=== PATIENT | female | born 1970 | race Caucasian/White ===

== ENCOUNTER 2017-01-07 16:46 | Emergency (ER) | payer SELFPAY ==
[~2017-01-07] VITALS: Ht 165.1 cm; Wt 76.0 kg
[~2017-01-07 16:46] MED LIST: DICL75 PO; TRAM50 PO
[2017-01-07 16:48] VITALS: BP 146/79; PULSE 82; RESP 20; TEMP 98.1; O2SAT 95
--- NOTE | 2017-01-07 17:22 | PD ---
HPI Chief Complaint: Musculoskeletal Complaint Time Seen by Provider: 17:19 Travel History International Travel<30 days: No Contact w/Intl Traveler<30days: No Traveled to known affect area: No History of Present Illness HPI Patient comes in for evaluation of left pinky finger pain that began last night. Patient states she fell catching herself with her left hand injuring her left pinky finger. Patient states she's been icing it and taking ibuprofen last dose around 9 AM this morning with minimal to no relief of her symptoms. Patient states she is unable to move the finger secondary to pain. Denies any numbness or tingling. Pain radiates proximally. Patient is left-hand dominant. PFSH Past Medical History Medical History: Denies Significant Hx Immunizations Current: Yes Tubal Ligation: Yes Past Surgical History Section: Yes (x3) Oral Surgery: Yes (Root canal) Social History Alcohol Use: Yes (Occ) Tobacco Use: Yes (1/3 PPD) Substance Use: No Allergies-Medications (Allergen,Severity, Reaction): Coded Allergies: Penicillin (Verified Allergy, Severe, SWELLING/HIVES, 01/07/17) Codeine (Verified Adverse Reaction, Mild, Nausea/Vomiting, 01/07/17) Lortab (Verified Adverse Reaction, Mild, Nausea/Vomiting, 01/07/17) Reported Meds & Prescriptions Reported Meds & Active Scripts Active Ibuprofen 800 Mg Tab 800 Mg PO Q8H PRN Review of Systems Except as stated in HPI: all other systems reviewed are Neg Physical Exam Narrative GENERAL: Well-developed, overly nourished, in no acute distress, and non-ill appearing. SKIN: Warm and dry. Soft tissue swelling or ecchymosis noted palmar surface of the left fifth digit. HEAD: Atraumatic. Normocephalic. EYES: Pupils equal and round. EOMI. No scleral icterus. No injection or drainage. ENT: No nasal bleeding or discharge. Mucous membranes pink and moist. NECK: Trachea midline.Supple. No nuclear rigidity. CARDIOVASCULAR: Radial pulses 2+ intact bilaterally. Capillary refill less than 2 seconds. RESPIRATORY: No accessory muscle use. No respiratory distress. MUSCULOSKELETAL: No obvious deformities. No clubbing. No cyanosis. No edema. Decreased range of motion left pinky finger secondary to pain. Capillary refill less than 2 seconds distal to injury and equal BL. NV intact distal to injury. Flexion and extension of thumb equal BL. No tenderness to the anatomical snuffbox. NEUROLOGICAL: Awake and alert. No obvious cranial nerve deficits. Motor grossly within normal limits. Normal speech. PSYCHIATRIC: Appropriate mood and affect; insight and judgment normal. Data Data Last Documented VS Vital Signs Date Time Temp Pulse Resp B/P Pulse Ox O2 Delivery O2 Flow Rate FiO2 01/07/17 16:48 98.1 82 20 146/79 95 Room Air Orders Finger ([id number]) (01/07/17 ) Ice/Cold Pack (01/07/17 17:18) Ibuprofen (Motrin) (01/07/17 17:30) Tramadol (Ultram) (01/07/17 17:30) Finger ([id number]) (01/07/17 ) MDM Medical Decision Making Medical Screen Exam Complete: Yes Emergency Medical Condition: Yes Differential Diagnosis Fracture, sprain, contusion, dislocation, other Narrative Course Patient in no obvious distress upon re-evaluation. All pertinent Radiology result(s) discussed with patient. Patient was asked if they wanted to speak to my attending, which the patient did not wish to do at this time. Any questions/ concerns in reference to patient diagnosis/condition discussed and clarified prior to patient's discharge. Reinforced sheer importance of close follow up with hand surgeon. Instructed patient to return to ED immediately, if symptoms return/worsen. Pt showed understanding of above instructions. Further instructions and recommendations were detailed in discharge paperwork. Pt ambulated without difficulty out of ED at discharge. Procedures Procedure Narrative Verbal consent was obtained. Finger was reduced. Splint was placed. Patient tolerated procedure well. There is no complications medications. Neurovascular reassessed remained intact. Diagnosis Primary Impression: Dislocation, finger closed Qualified Code: S63.259A - Dislocation, finger closed, initial encounter Referrals: Livia Puente MD Patient Instructions: Finger Dislocation (ED), Finger Fracture (DC), General Instructions, Splint Care (ED) Additional Instructions: Follow-up with Dr. Puente, hand surgeon, this week call Monday for an appointment for reevaluation of year previously dislocated finger and questionable bone fragment on x-ray. Take all medication as prescribed. Apply ice to affected area 20 minutes per hour as needed for pain and swelling. Elevate affected finger whenever possible to decrease pain and swelling. Return to the emergency department if symptoms get worse. Med/Other Pt SpecificInfo: Prescription(s) given Scripts Ibuprofen 800 Mg [id number] Mg PO Q8H PRN (Pain/Inflammation) #21 TAB Ref 0 Prov:Beth Ordonez MD 01/07/17 Disposition: 01 DISCHARGE HOME Condition: Stable Prosper Alcantar Jan 07, 2017 17:22
[2017-01-07] MEDS ORDERED: traMADol HCL 50 MG TAB PO ONE (17:30)
[2017-01-07] MEDS ORDERED: IBUPROFEN 800 MG TAB PO ONE (17:30)
--- NOTE | 2017-01-07 17:37 | RADRPT ---
EXAM DATE/TIME: 01/07/2017 17:35 [facility] COMPARISON: No previous studies available for comparison. INDICATIONS : Left hand, fifth digit pain. Patient fell backwards lastnight and landed on her hand. MEDICAL HISTORY : None. SURGICAL HISTORY : None. ENCOUNTER: Initial ACUITY: 2 days PAIN SCORE: 10/10 LOCATION: Left hand, fifth digit. FINDINGS: Examination of the fifth digit of the left hand demonstrates no evidence of fracture. There is disloc ation of the PIP joint of the little finger dislocation. No radiopaque foreign bodies are seen. The soft tissues are intact. CONCLUSION: Dislocation of the PIP joint posteriorly. Bill Gallardo MD on January 07, 2017 at 17:35 Board Certified Radiologist. This report was verified electronically.
--- NOTE | 2017-01-07 18:05 | RADRPT ---
EXAM DATE/TIME: 01/07/2017 17:52 [facility] COMPARISON: No previous studies available for comparison. INDICATIONS : Post reduction of fifth digit. MEDICAL HISTORY : None. SURGICAL HISTORY : None. ENCOUNTER: Initial ACUITY: 1 day PAIN SCORE: 10/10 LOCATION: Left fifth digit. FINDINGS: Examination of the fifth digit of the left hand demonstrates relocation of PIP joint. Tiny fragments are seen anteriorly. Soft tissue swelling. CONCLUSION: Little finger has been relocated to its anatomic position. Soft tissue swelling. Tiny fragments seen anteriorly. Bill Gallardo MD on January 07, 2017 at 18:02 Board Certified Radiologist. This report was verified electronically.
[2017-01-07] MEDS ORDERED: IBUP800T23 PO (18:27)
== END 2017-01-07 18:46 | disposition home or self-care (01) ==
LOC: NEPB 16:46
DX: S63.257A Unspecified dislocation of left little finger, initial encounter (principal); W01.10XA Fall on same level from slipping, tripping and stumbling with subsequent striking against unspecified object, initial encounter; F17.210 Nicotine dependence, cigarettes, uncomplicated
CPT/HCPCS: 26770; 73140

== ENCOUNTER 2017-01-18 15:37 | Observation (INO) | payer SELFPAY ==
[~2017-01-18] VITALS: Ht 165.1 cm; Wt 71.0 kg
[~2017-01-18 15:37] MED LIST changes: -DICL75 PO; +IBUP800T23 PO; -TRAM50 PO
[2017-01-18 15:40] VITALS: BP 137/87; PULSE 100; RESP 20; TEMP 98.2; O2SAT 97
[2017-01-18] MEDS ORDERED: ONDANSETRON ODT 4 MG TAB PO ONE (17:00)
--- NOTE | 2017-01-18 17:08 | PD ---
HPI Chief Complaint: GI Complaint Time Seen by Provider: 17:02 Travel History International Travel<30 days: No Contact w/Intl Traveler<30days: No Traveled to known affect area: No History of Present Illness HPI Patient is a 46-year-old female presenting to emergency department for evaluation of abdominal pain, diarrhea, vomiting. Patient states her symptoms started on Monday. She states that has not improved at all since symptoms started. She is vomited 3 times today already. She's had several episodes of diarrhea as well. Patient localizes the pain to the left lower quadrant, she's got no significant past medical history. She denies any tobacco or alcohol use. Patient further denies any fever, chills, chest pain, shortness of breath , headaches or body aches. PFSH Past Medical History Medical History: Denies Significant Hx Immunizations Current: Yes ?: Not LMP: 01/10/17 Tubal Ligation: Yes Past Surgical History Section: Yes (x3) Oral Surgery: Yes (Root canal) Social History Alcohol Use: No Tobacco Use: No Substance Use: No Allergies-Medications (Allergen,Severity, Reaction): Coded Allergies: Penicillin (Verified Allergy, Severe, SWELLING/HIVES, 01/18/17) Codeine (Verified Adverse Reaction, Mild, Nausea/Vomiting, 01/18/17) Lortab (Verified Adverse Reaction, Mild, Nausea/Vomiting, 01/18/17) Reported Meds & Prescriptions Reported Meds & Active Scripts Active Ibuprofen 800 Mg Tab 800 Mg PO Q8H PRN Review of Systems Except as stated in HPI: all other systems reviewed are Neg Gastrointestinal: Positive: Nausea, Vomiting, Diarrhea, Abdominal Pain, Changes in Bowel Habits Physical Exam Narrative GENERAL: Well-developed, well-nourished, alert occasion female. Resting comfortably in no acute distress. SKIN: Warm and dry. HEAD: Atraumatic. Normocephalic. EYES: Pupils equal and round. No scleral icterus. No injection or drainage. ENT: No nasal bleeding or discharge. Mucous membranes pink and moist. NECK: Trachea midline. No JVD. CARDIOVASCULAR: Regular rate and rhythm. No murmur appreciated. RESPIRATORY: No accessory muscle use. Clear to auscultation. Breath sounds equal bilaterally. GASTROINTESTINAL: Abdomen soft, moderately tender to palpation left lower quadrant, nondistended. Hepatic and splenic margins not palpable. Positive guarding, no rebound. Positive bowel sounds. MUSCULOSKELETAL: No obvious deformities. No clubbing. No cyanosis. No edema. NEUROLOGICAL: Awake and alert. No obvious cranial nerve deficits. Motor grossly within normal limits. Normal speech. PSYCHIATRIC: Appropriate mood and affect; insight and judgment normal. Data Data Last Documented VS Vital Signs Date Time Temp Pulse Resp B/P Pulse Ox O2 Delivery O2 Flow Rate FiO2 01/18/17 15:40 98.2 100 20 137/87 97 Room Air Orders Complete Blood Count With Diff (01/18/17 16:51) Comprehensive Metabolic Panel (01/18/17 16:51) Lipase (01/18/17 16:51) Prothrombin Time / Inr (Pt) (01/18/17 16:51) Act Partial Throm Time (Ptt) (01/18/17 16:51) Urinalysis - C+S If Indicated (01/18/17 16:51) Abdomen, Kub Only (01/18/17 16:51) Ed Urine Pregnancytest Poc (01/18/17 16:51) Ondansetron Odt (Zofran Odt) (01/18/17 17:00) Sodium Chlor 0.9% 1000 Ml Inj (Ns 1000 M (01/18/17 19:30) Morphine Inj (Morphine Inj) (01/18/17 19:30) Ct Abd/Pel W Iv Contrast(Rout) (01/18/17 ) Labs Laboratory Tests Test 01/18/17 17:03 White Blood Count 7.3 TH/MM3 Red Blood Count 5.08 MIL/MM3 Hemoglobin 14.2 GM/DL Hematocrit 42.6 % Mean Corpuscular Volume 83.8 FL Mean Corpuscular Hemoglobin 28.0 PG Mean Corpuscular Hemoglobin 33.4 % Concent Red Cell Distribution Width 14.6 % Platelet Count 230 TH/MM3 Mean Platelet Volume 8.9 FL Neutrophils (%) (Auto) 65.4 % Lymphocytes (%) (Auto) 16.8 % Monocytes (%) (Auto) 16.5 % Eosinophils (%) (Auto) 1.0 % Basophils (%) (Auto) 0.3 % Neutrophils # (Auto) 4.8 TH/MM3 Lymphocytes # (Auto) 1.2 TH/MM3 Monocytes # (Auto) 1.2 TH/MM3 Eosinophils # (Auto) 0.1 TH/MM3 Basophils # (Auto) 0.0 TH/MM3 CBC Comment DIFF FINAL Differential Comment Prothrombin Time 11.7 SEC Prothromb Time International 1.1 RATIO Ratio Activated Partial 26.0 SEC Thromboplast Time Urine Color DARK-YELLOW Urine Turbidity HAZY Urine pH 5.5 Urine Specific [place] 1.034 Urine Protein 30 mg/dL Urine Glucose (UA) NEG mg/dL Urine Ketones NEG mg/dL Urine Occult Blood MOD Urine Nitrite NEG Urine Bilirubin NEG Urine Urobilinogen LESS THAN 2.0 MG/DL Urine Leukocyte Esterase NEG Urine RBC 13 /hpf Urine WBC 1 /hpf Urine Squamous Epithelial 8 /hpf Cells Urine Bacteria OCC /hpf Urine Mucus MANY /lpf Microscopic Urinalysis Comment CULT NOT INDICATED Sodium Level 137 MEQ/L Potassium Level 3.7 MEQ/L Chloride Level 104 MEQ/L Carbon Dioxide Level 24.7 MEQ/L Anion Gap 8 MEQ/L Blood Urea Nitrogen 11 MG/DL Creatinine 0.90 MG/DL Estimat Glomerular Filtration 68 ML/MIN Rate Random Glucose 106 MG/DL Calcium Level 9.0 MG/DL Total Bilirubin 0.2 MG/DL Aspartate Amino Transf 29 U/L (AST/SGOT) Alanine Aminotransferase 79 U/L (ALT/SGPT) Alkaline Phosphatase 116 U/L Total Protein 7.5 GM/DL Albumin 3.5 GM/DL Lipase 67 U/L MDM Medical Decision Making Medical Screen Exam Complete: Yes Emergency Medical Condition: Yes Interpretation(s) Vital Signs Date Time Temp Pulse Resp B/P Pulse Ox O2 Delivery O2 Flow Rate FiO2 01/18/17 15:40 98.2 100 20 137/87 97 Room Air Differential Diagnosis Obstruction versus ovarian cyst versus diverticulitis versus gastroenteritis versus other Narrative Course Patient is a 46-year-old female presenting to emergency evaluation of left lower quadrant abdominal pain, nausea, vomiting and diarrhea. Patient's vital signs are stable, she is well oxygenated on room air and afebrile currently. Labs and imaging ordered and pending. Workup initiated in triage, care of patient will be transferred to a provider when a medical bed is available. Sonal Snowden Jan 18, 2017 17:08
--- NOTE | 2017-01-18 17:21 | RADRPT ---
EXAM DATE/TIME: 01/18/2017 16:58 [facility] COMPARISON: No previous studies available for comparison. INDICATIONS : Abdominal pain. MEDICAL HISTORY : None. SURGICAL HISTORY : section. ENCOUNTER: Initial ACUITY: 4 - 6 days PAIN SCORE: 9/10 LOCATION: lower quadrant abdomen. FINDINGS: Supine view of the abdomen was performed. The abdominal bowel gas pattern is normal. No abnormal ma sses, calcifications, or organomegaly is seen. The osseous structures are unremarkable. CONCLUSION: Within normal limits. No free air or perceptible obstruction.. Joel Wilson MD on January 18, 2017 at 17:19 Board Certified Radiologist. This report was verified electronically.
[2017-01-18 17:35] LABS: AUTOMATED NEUTROPHIL # 4.8 TH/MM3 (1.8-7.7); BASOPHIL % 0.3 % (0.0-2.0); EOSINOPHIL # 0.1 TH/MM3 (0-0.4); HEMATOCRIT 42.6 % (35.0-46.0); HEMO FLAGS DIFF FINAL; LYMPH % 16.8 % (9.0-44.0); LYMPHOCYTE # 1.2 TH/MM3 (1.0-4.8); MEAN CELL VOLUME 83.8 FL (80.0-100.0); MEAN CORPUSCULAR HGB CONC 33.4 % (32.0-36.0); MONO % 16.5 % (0.0-8.0); NEUT % 65.4 % (16.0-70.0); PLATELET COUNT 230 TH/MM3 (150-450); RED BLOOD COUNT 5.08 MIL/MM3 (4.00-5.30); RED CELL DISTRIBUTION WIDTH 14.6 % (11.6-17.2); WHITE BLOOD COUNT 7.3 TH/MM3 (4.0-11.0)
[2017-01-18 17:43] LABS: INTERNATIONAL NORMALIZED RATIO 1.1 RATIO; PROTHROMBIN TIME - PATIENT 11.7 SEC (9.8-11.6)
[2017-01-18 17:45] LABS: BACTERIA, URINE OCC /hpf; BLOOD, URINE MOD (NEG); COMMENT (UR) CULT NOT INDICATED; CULTURE IF INDICATED CULT NOT INDICATED; GLUCOSE,URINE NEG (NEG); KETONE, URINE NEG (NEG); MUCUS URINE MANY /lpf (OCC); NITRITE,URINE NEG (NEG); PH, URINE 5.5 (5.0-8.5); SQUAMOUS EPITHELIAL CELL URINE 8 /hpf (0-5); URINE COLOR DARK-YELLOW (YELLW/STRAW)
[2017-01-18 17:56] LABS: ANION GAP 8 MEQ/L (5-15); AST (GOT) 29 U/L (15-37); BICARBONATE 24.7 MEQ/L (21.0-32.0); BLOOD UREA NITROGEN 11 MG/DL (7-18); CHLORIDE 104 MEQ/L (98-107); GLOMERULAR FILTRATION RATE 68 ML/MIN (>89); POTASSIUM 3.7 MEQ/L (3.5-5.1); SODIUM (NA) 137 MEQ/L (136-145)
[2017-01-18 18:00] LABS: ALKALINE PHOSPHATASE 116 U/L (45-117); ALT (GPT) 79 U/L (10-53); TOTAL BILIRUBIN ADULT 0.2 MG/DL (0.2-1.0)
[2017-01-18 19:25] VITALS: BP 139/84; PULSE 95; RESP 20; O2SAT 95
[2017-01-18] MEDS ORDERED: SODIUM CHLOR 0.9% 1000 ML INJ 1,000 ML IV ONE ×2 (19:30→21:00)
[2017-01-18] MEDS ORDERED: MORPHINE SULFATE 4 MG/ML INJ IV PUSH ONE ×2 (19:30→21:00)
--- NOTE | 2017-01-18 19:31 | PD ---
Physical Exam Date Seen by Provider: Jan 18, 2017 Time Seen by Provider: 19:28 Narrative Accepted in transfer of care from previous provider GENERAL: Well-developed well-nourished female in no respiratory distress SKIN: Warm and dry. HEAD: Normocephalic. EYES: No scleral icterus. No injection or drainage. NECK: Supple, trachea midline. No JVD or lymphadenopathy. CARDIOVASCULAR: Regular rate and rhythm without murmurs, gallops, or rubs. RESPIRATORY: Breath sounds equal bilaterally. No accessory muscle use. GASTROINTESTINAL: Abdomen soft, diffusely tender to palpation specifically left lower quadrant greater than right lower quadrant without guarding or rebound, nondistended. Rectal exam: Normal sphincter tone mucoid brown stool on exam glove MUSCULOSKELETAL: No cyanosis, or edema. BACK: Nontender without obvious deformity. No CVA tenderness. Data Data Last Documented VS Vital Signs Date Time Temp Pulse Resp B/P Pulse Ox O2 Delivery O2 Flow Rate FiO2 01/18/17 15:40 98.2 100 20 137/87 97 Room Air Orders Complete Blood Count With Diff (01/18/17 16:51) Comprehensive Metabolic Panel (01/18/17 16:51) Lipase (01/18/17 16:51) Prothrombin Time / Inr (Pt) (01/18/17 16:51) Act Partial Throm Time (Ptt) (01/18/17 16:51) Urinalysis - C+S If Indicated (01/18/17 16:51) Abdomen, Kub Only (01/18/17 16:51) Ed Urine Pregnancytest Poc (01/18/17 16:51) Ondansetron Odt (Zofran Odt) (01/18/17 17:00) Sodium Chlor 0.9% 1000 Ml Inj (Ns 1000 M (01/18/17 19:30) Morphine Inj (Morphine Inj) (01/18/17 19:30) Ct Abd/Pel W Iv Contrast(Rout) (01/18/17 ) Iohexol 350 Inj (Omnipaque 350 Inj) (01/18/17 20:35) Sodium Chlor 0.9% 1000 Ml Inj (Ns 1000 M (01/18/17 21:00) Metronidazole 500 Mg Inj (Flagyl 500 Mg (01/18/17 21:00) Morphine Inj (Morphine Inj) (01/18/17 21:00) Ondansetron Inj (Zofran Inj) (01/18/17 21:00) Enteric Path (Stool) (01/18/17 22:01) Admit Order (Ed Use Only) (01/18/17 ) ^ Saline Lock (01/18/17 22:03) Resp Oxygen Rigo C Titrat 1-4 L (01/18/17 ) ^ Notify Dr: Other (01/18/17 22:03) Sodium Chloride 0.9% Flush (Ns Flush) (01/19/17 09:00) Sodium Chloride 0.9% Flush (Ns Flush) (01/18/17 22:15) NPO (01/18/17 22:04) Labs Laboratory Tests Test 01/18/17 17:03 White Blood Count 7.3 TH/MM3 Red Blood Count 5.08 MIL/MM3 Hemoglobin 14.2 GM/DL Hematocrit 42.6 % Mean Corpuscular Volume 83.8 FL Mean Corpuscular Hemoglobin 28.0 PG Mean Corpuscular Hemoglobin 33.4 % Concent Red Cell Distribution Width 14.6 % Platelet Count 230 TH/MM3 Mean Platelet Volume 8.9 FL Neutrophils (%) (Auto) 65.4 % Lymphocytes (%) (Auto) 16.8 % Monocytes (%) (Auto) 16.5 % Eosinophils (%) (Auto) 1.0 % Basophils (%) (Auto) 0.3 % Neutrophils # (Auto) 4.8 TH/MM3 Lymphocytes # (Auto) 1.2 TH/MM3 Monocytes # (Auto) 1.2 TH/MM3 Eosinophils # (Auto) 0.1 TH/MM3 Basophils # (Auto) 0.0 TH/MM3 CBC Comment DIFF FINAL Differential Comment Prothrombin Time 11.7 SEC Prothromb Time International 1.1 RATIO Ratio Activated Partial 26.0 SEC Thromboplast Time Urine Color DARK-YELLOW Urine Turbidity HAZY Urine pH 5.5 Urine Specific [place] 1.034 Urine Protein 30 mg/dL Urine Glucose (UA) NEG mg/dL Urine Ketones NEG mg/dL Urine Occult Blood MOD Urine Nitrite NEG Urine Bilirubin NEG Urine Urobilinogen LESS THAN 2.0 MG/DL Urine Leukocyte Esterase NEG Urine RBC 13 /hpf Urine WBC 1 /hpf Urine Squamous Epithelial 8 /hpf Cells Urine Bacteria OCC /hpf Urine Mucus MANY /lpf Microscopic Urinalysis Comment CULT NOT INDICATED Sodium Level 137 MEQ/L Potassium Level 3.7 MEQ/L Chloride Level 104 MEQ/L Carbon Dioxide Level 24.7 MEQ/L Anion Gap 8 MEQ/L Blood Urea Nitrogen 11 MG/DL Creatinine 0.90 MG/DL Estimat Glomerular Filtration 68 ML/MIN Rate Random Glucose 106 MG/DL Calcium Level 9.0 MG/DL Total Bilirubin 0.2 MG/DL Aspartate Amino Transf 29 U/L (AST/SGOT) Alanine Aminotransferase 79 U/L (ALT/SGPT) Alkaline Phosphatase 116 U/L Total Protein 7.5 GM/DL Albumin 3.5 GM/DL Lipase 67 U/L [facility] Medical Record Reviewed: Yes Supervised Visit with DARWIN: No Interpretation(s) Last Impressions Abdomen X-Ray 01/18/17 1651 Signed Impressions: Service Date/Time: Wednesday, January 18, 2017 16:58 - CONCLUSION: Within normal limits. No free air or perceptible obstruction.. Joel Wilson MD Abdomen/Pelvis CT 01/18/17 0000 Signed Impressions: Service Date/Time: Wednesday, January 18, 2017 20:21 - CONCLUSION: 1. Diffuse colitis greatest involving the ascending, descending and sigmoid colon. Mild inflammatory changes without perforation or abscess. Bill Gallardo MD CBC & BMP Diagram 01/18/17 17:03 Vital Signs Date Time Temp Pulse Resp B/P Pulse Ox O2 Delivery O2 Flow Rate FiO2 01/18/17 15:40 98.2 100 20 137/87 97 Room Air Differential Diagnosis Gastroenteritis, colitis, diverticulitis, food borne illness, renal colic Narrative Course 46-year-old female with 4 days of nausea vomiting diarrhea abdominal cramping with concentrated urine and episodes of hematochezia no hematemesis no coffee- ground emesis no melena. No well water consumption no dietary indiscretion no foreign travel. No family members with similar symptoms. Subjective fever and chills. Prior history of diverticulitis. No recent antibiotic use. No significant relief of symptoms using [id number] Imodium. Pain is rated as 9/10 in intensity. Patient unable tolerate oral hydration. Lab values found to be grossly within normal range except for microscopic hematuria. CT abdomen and pelvis ordered normal saline bolus administered patient is artery received Zofran 4 mg IV patient has codeine/Lortab sensitivity was nausea vomiting but no true allergy and states his tolerated IV morphine while in the past without adverse symptoms; morphine sulfate 3 mg IV administered. At 9:05 PM patient is aware of lab results CT imaging results and reports some improvement after 1 L normal saline along with previous administered Zofran 4 mg and morphine sulfate 3 mg IV. Patient continues to have crampy abdominal pain no further vomiting since Zofran and has not had recurrent diarrheal stool since administration IV fluid hydration. We'll attempt oral trial of ice chips and Gatorade a precipitates cramping diarrhea or increased pain will admit patient for observation of able tolerate oral hydration without recurrent cramping pain or bloody diarrhea will attempt trial of outpatient management with oral Flagyl. At 9:45 PM after attempting oral hydration patient with recurrent crampy abdominal pain and bloody diarrhea; call placed to the hospitalist service for observation admission and bowel rest with IV fluid hydration. HemaPrompt Test Point of Care Internal Pos. & Neg. Controls: Passed Fecal Specimen Occult Blood: Positive Sepsis Criteria SIRS Criteria (2 or more): Heart rate over 90 Physician Communication Physician Communication call placed to [facility] service -- discussed with Dr Foote --OBS Diagnosis Primary Impression: Colitis Admitting Information Admitting Physician Requests: Observation Inessa Clemente MD Jan 18, 2017 19:31
[2017-01-18] MEDS ORDERED: IOHEXOL 350 MG/ML 10 ML VIAL (for RAD DIAG) IV ONE (20:35)
--- NOTE | 2017-01-18 20:49 | RADRPT ---
EXAM DATE/TIME: 01/18/2017 20:21 [facility] COMPARISON: No previous studies available for comparison. INDICATIONS : Abdominal cramping with nausea, vomiting, and diarrhea for 4 days. IV CONTRAST: 97 cc Omnipaque 350 (iohexol) IV ORAL CONTRAST: No oral contrast ingested. RADIATION DOSE: 8.14 CTDIvol (mGy) MEDICAL HISTORY : None SURGICAL HISTORY : Tubal ligation. ENCOUNTER: Initial ACUITY: 4 - 6 days PAIN SCALE: 7/10 LOCATION: Abdomen/pelvis TECHNIQUE: Volumetric scanning of the abdomen and pelvis was performed. Using automated exposure control and ad justment of the mA and/or kV according to patient size, radiation dose was kept as low as reasonably achievable to obtain optimal diagnostic quality images. FINDINGS: LOWER LUNGS: The visualized lower lungs are clear. LIVER: Homogeneous density without lesion. There is no dilation of the biliary tree. No calcified gallston es. SPLEEN: Normal size without lesion. PANCREAS: Within normal limits. KIDNEYS: Normal in size and shape. There is no mass, stone or hydronephrosis. ADRENAL GLANDS: Within normal limits. VASCULAR: There is no aortic aneurysm. BOWEL/MESENTERY: Wall thickening throughout the colon greatest along the descending and sigmoid colon. Slight inflamma tory changes. No perforation or abscess. There is no free intraperitoneal air or fluid. ABDOMINAL WALL: Within normal limits. RETROPERITONEUM: There is no lymphadenopathy. BLADDER: No wall thickening or mass. REPRODUCTIVE: Within normal limits. INGUINAL: There is no lymphadenopathy or hernia. MUSCULOSKELETAL: Within normal limits for patient age. CONCLUSION: 1. Diffuse colitis greatest involving the ascending, descending and sigmoid colon. Mild inflammatory changes without perforation or abscess. Bill Gallardo MD on January 18, 2017 at 20:46 Board Certified Radiologist. This report was verified electronically.
[2017-01-18] MEDS ORDERED: metroNIDAZOLE 500 MG INJ 100 ML IV ONE (21:00)
[2017-01-18] MEDS ORDERED: ONDANSETRON HCL 4 MG/2 ML VIAL IV PUSH ONE (21:00)
[2017-01-18] MEDS ORDERED: SODIUM CHLORIDE 0.9% FLUSH 5 ML FLUSH IVF PRN (22:15)
[2017-01-18] MEDS ORDERED: SODIUM CHLORIDE 0.9% FLUSH 5 ML FLUSH FLUSH PRN (22:30)
[2017-01-18] MEDS ORDERED: NALOXONE HCL 0.4 MG/ML AMP IV PRN (22:30)
[2017-01-18] MEDS: CIPROFLOXACIN 400 MG PREMIX 200 ML IV SCH (23:11)
[2017-01-18] MEDS: SODIUM CHLOR 0.9% 1000 ML INJ 1,000 ML IV SCH (23:11)
[2017-01-19] VITALS (7 sets, daily range): BP systolic 100–129; BP diastolic 58–76; PULSE 79–88; RESP 18–20; TEMP 97.4–98.7; O2SAT 95–100
[2017-01-19] MEDS: metroNIDAZOLE 500 MG INJ 100 ML IV SCH ×4 (02:51→21:11)
[2017-01-19] MEDS: MORPHINE SULFATE 4 MG/ML INJ IV PUSH PRN ×3 (03:06→12:40)
--- NOTE | 2017-01-19 05:37 | HHI.HP ---
[facility] No Primary Care Physician Admission Diagnosis colitis Diagnoses: Chief Complaint: Abdominal pain, nausea, vomiting, diarrhea Travel History International Travel<30 Days: No Contact w/Intl Traveler <30 Da: No Traveled to Known Affected Are: No History of Present Illness History from patient, ER physician, irrigation, and review of medical records. Patient reported that since Monday she has been having diffuse abdominal pain. She also reports of subjective fever and chills that she did not measure her temperature. She stated that she was also having nausea and vomiting. No coffee color or bright red blood in her vomit. Next and she states that the vomiting has actually stopped since she arrived to ER and received Zofran. She was also having diarrhea. She states the diarrhea however has not stopped at all. She is still having it even when she drinks a sip of water. She also reports of some blood bright red color in her diarrhea. she stated she took a few doses of Imodium at home. She denies any sick contacts. In the emergency room, patient was given IV fluids. She had multiple episodes of running to the bathroom for diarrhea. She simply was not able to ambulate well and was extremely weak because of these bouts of diarrhea. Apart from the above, patient denies any chest pain/palpitations/shortness of breath/focal weakness. She denies any syncopal episodes or falls. Denies any urinary burning or pain on urination. Review of Systems Except as stated in HPI: all other systems reviewed are Neg Past Family Social History Past Medical History hx of hydronephrosis 6 yrs ago - right side Past Surgical History c section x3 tubal ligation Reported Medications None Allergies: Coded Allergies: Penicillin (Verified Allergy, Severe, SWELLING/HIVES, 01/18/17) Codeine (Verified Adverse Reaction, Mild, Nausea/Vomiting, 01/18/17) Lortab (Verified Adverse Reaction, Mild, Nausea/Vomiting, 01/18/17) Family History mom - 3 cva , 2 mi brother- copd Social History smoking quit 4 days ago - smoked 8 yrs - a pack every 3 days etoh socially, used to drink heavily 15yrs ago Physical Exam Vital Signs Vital Signs Date Time Temp Pulse Resp B/P Pulse Ox O2 Delivery O2 Flow Rate FiO2 01/19/17 03:59 82 18 122/69 100 Room Air 01/19/17 00:00 88 20 129/76 96 Room Air 01/18/17 19:25 95 20 139/84 95 Room Air 01/18/17 15:40 98.2 100 20 137/87 97 Room Air Physical Exam GENERAL: This is a very pleasant lady, looks quite weak. Tactile fever, in no apparent distress. SKIN: No rashes, ecchymoses or lesions. Cool and dry. HEAD: Atraumatic. Normocephalic. No temporal or scalp tenderness. EYES: No scleral icterus. No injection or drainage. ENT: Nose without bleeding, purulent drainage or septal hematoma. Airway patent. NECK: Trachea midline. No JVD CARDIOVASCULAR: Regular rate and rhythm without murmurs, gallops, or rubs. RESPIRATORY: Clear to auscultation. Breath sounds equal bilaterally. No wheezes , rales, or rhonchi. GASTROINTESTINAL: Abdomen soft, tenderness diffusely, nondistended.. No guarding. MUSCULOSKELETAL: Extremities without clubbing, cyanosis, or edema.No calf tenderness. NEUROLOGICAL: Awake and alert. Motor and sensory grossly within normal limits Normal speech. Laboratory Laboratory Tests Test 01/18/17 17:03 White Blood Count 7.3 Red Blood Count 5.08 Hemoglobin 14.2 Hematocrit 42.6 Mean Corpuscular Volume 83.8 Mean Corpuscular Hemoglobin 28.0 Mean Corpuscular Hemoglobin 33.4 Concent Red Cell Distribution Width 14.6 Platelet Count 230 Mean Platelet Volume 8.9 Neutrophils (%) (Auto) 65.4 Lymphocytes (%) (Auto) 16.8 Monocytes (%) (Auto) 16.5 Eosinophils (%) (Auto) 1.0 Basophils (%) (Auto) 0.3 Neutrophils # (Auto) 4.8 Lymphocytes # (Auto) 1.2 Monocytes # (Auto) 1.2 Eosinophils # (Auto) 0.1 Basophils # (Auto) 0.0 CBC Comment DIFF FINAL Differential Comment Prothrombin Time 11.7 Prothromb Time International 1.1 Ratio Activated Partial 26.0 Thromboplast Time Urine Color DARK-YELLOW Urine Turbidity HAZY Urine pH 5.5 Urine Specific [place] 1.034 Urine Protein 30 Urine Glucose (UA) NEG Urine Ketones NEG Urine Occult Blood MOD Urine Nitrite NEG Urine Bilirubin NEG Urine Urobilinogen LESS THAN 2.0 Urine Leukocyte Esterase NEG Urine RBC 13 Urine WBC 1 Urine Squamous Epithelial 8 Cells Urine Bacteria OCC Urine Mucus MANY Microscopic Urinalysis Comment CULT NOT INDICATED Sodium Level 137 Potassium Level 3.7 Chloride Level 104 Carbon Dioxide Level 24.7 Anion Gap 8 Blood Urea Nitrogen 11 Creatinine 0.90 Estimat Glomerular Filtration 68 Rate Random Glucose 106 Calcium Level 9.0 Total Bilirubin 0.2 Aspartate Amino Transf 29 (AST/SGOT) Alanine Aminotransferase 79 (ALT/SGPT) Alkaline Phosphatase 116 Total Protein 7.5 Albumin 3.5 Lipase 67 Date/Time Procedure Status Source Growth 01/18/17 22:55 Received Stool Stool Pending Result Diagram: 01/18/17 1703 01/18/17 1703 Imaging Last 48 hours Impressions Abdomen X-Ray 01/18/17 1651 Signed Impressions: Service Date/Time: Wednesday, January 18, 2017 16:58 - CONCLUSION: Within normal limits. No free air or perceptible obstruction.. Joel Wilson MD Abdomen/Pelvis CT 01/18/17 0000 Signed Impressions: Service Date/Time: Wednesday, January 18, 2017 20:21 - CONCLUSION: 1. Diffuse colitis greatest involving the ascending, descending and sigmoid colon. Mild inflammatory changes without perforation or abscess. Bill Gallardo MD Assessment and Plan Problem List: (1) Colitis ICD Code: K52.9 Status: Acute Assessment and Plan Impression: Diffuse colitis Plan: IV hydration. Stool studies including for ova and parasites. Will monitor electrolytes closely. Nausea control. Pain control. GI evaluation as an outpatient. This was informed to patient. Ciprofloxacin 400 mg IV every 12 hours. Flagyl 500 mg IV every 6 hours. DVT prophylaxiswith SCD. GI prophylaxis on pantoprazole Discussed Condition With Patient, ER physician, ER nurse Mercedes Foote MD Jan 19, 2017 05:37
--- NOTE | 2017-01-19 08:09 | HHI.PR ---
Subjective Remarks Follow up for colitis. The patient reports she does not feel well again today. Still having multiple loose stools, approximately 6-7 overnight, denies noticing any blood. No fevers/chills overnight. No nausea/vomiting. She reports continued constant epigastric pain. Denies taking any antibiotics recently or recent travel. Some family members were sick recently with URI but no gastroenteritis. Objective Vitals Vital Signs Date Time Temp Pulse Resp B/P Pulse Ox O2 Delivery O2 Flow Rate FiO2 01/19/17 03:59 82 18 122/69 100 Room Air 01/19/17 00:00 88 20 129/76 96 Room Air 01/18/17 19:25 95 20 139/84 95 Room Air 01/18/17 15:40 98.2 100 20 137/87 97 Room Air Result Diagram: 01/18/17 1703 01/18/17 1703 Imaging Last Impressions Abdomen X-Ray 01/18/17 1651 Signed Impressions: Service Date/Time: Wednesday, January 18, 2017 16:58 - CONCLUSION: Within normal limits. No free air or perceptible obstruction.. Joel Wilson MD Abdomen/Pelvis CT 01/18/17 0000 Signed Impressions: Service Date/Time: Wednesday, January 18, 2017 20:21 - CONCLUSION: 1. Diffuse colitis greatest involving the ascending, descending and sigmoid colon. Mild inflammatory changes without perforation or abscess. Bill Gallardo MD Objective Remarks GENERAL: Well-nourished, well-developed middle aged female patient in [facility]. SKIN: Warm and dry. No rash. HEENT: Normocephalic. Atraumatic.Pupils equal and round. No scleral icterus. No injection or drainage. Mucous membranes pink and moist. NECK: Supple. Trachea midline. CARDIOVASCULAR: Regular rate and rhythm. S1, S2 noted. No murmur appreciated. RESPIRATORY: No accessory muscle use. Clear to auscultation. Breath sounds equal bilaterally. GASTROINTESTINAL: Abdomen soft, nondistended, moderate epigastric TTP. Normoactive bowel sounds x4. MUSCULOSKELETAL: No obvious deformities. Extremities without clubbing, cyanosis , or edema. NEUROLOGICAL: Awake and alert. No obvious cranial nerve deficits. Motor grossly within normal limits. Normal speech. PSYCHIATRIC: Appropriate mood and affect; insight and judgment normal. Medications and IVs Current Medications Medications (Trade) Dose Ordered Sig/Sukhwinder Route Start Time Stop Time Status Last Admin (NS 1000 ml Inj) 1,000 ml @ 100 mls/hr Q10H IV 01/18/17 22:19 01/19/17 08:31 (NS Flush) 2 ml UNSCH PRN FLUSH 01/18/17 22:30 (NS Flush) 2 ml BID FLUSH 01/19/17 09:00 01/19/17 09:09 (Zofran Inj) 4 mg Q6H PRN IVP 01/18/17 22:30 Naloxone HCl 0.4 mg 0.4 mg UNSCH PRN IV 01/18/17 22:30 Ciprofloxacin/ Dextrose 200 ml @ 200 mls/hr Q12H IV 01/18/17 23:00 01/18/17 23:11 (Flagyl 500 Mg Inj) 100 ml @ 100 mls/hr Q6H IV 01/19/17 03:00 01/19/17 09:09 (Morphine Inj) 2 mg Q3H PRN IV PUSH 01/18/17 22:30 01/19/17 06:31 (Dilaudid) 1 mg Q4H PRN PO 01/19/17 08:15 01/19/17 09:10 (Protonix) 40 mg DAILY PO 01/19/17 09:00 01/19/17 09:09 (Pill Splitter) 1 ea UNSCH PRN OTHER 01/19/17 08:45 (Lactinex) 1 tab TID PO 01/19/17 13:00 (Tylenol) 650 mg Q4H PRN PO 01/19/17 10:00 (Mag-Al Plus Susp Liq) 30 ml Q6H PRN PO 01/19/17 10:00 (Tums Chew) 1,000 mg TID PRN CHEW 01/19/17 10:00 Urinary Catheter: No Vascular Central Line Catheter: No A/P Problem List: (1) Colitis ICD Code: K52.9 Status: Acute Assessment and Plan 46-year-old female with no significant past medical history presents with abdominal pain, nausea/vomiting, and diarrhea. Acute Colitis: CT abdomen images reviewed by me, shows diffuse colitis greatest involving the ascending, descending, and sigmoid colon; mild inflammatory changes, no perforation/abscess. Send stool for culture, check Cdiff. Continue on IV Cipro and Flagyl. Lactinex tid. Protonix. Supportive treatment with IVF, antiemetics, and pain control with po dilaudid and IV morphine prn. Regular diet as tolerated. DVT Prophylaxis: teds/SCDs Written by Aida Hinojosa, acting as scribe for Dr. Jackson on 01/19/17 at 08:09. All or portions of this note were transcribed by scribe []. I, Dr. Juan Francisco Jackson personally performed the history, physical exam, and medical decision making; and confirmed the accuracy of the information in the transcribed note. Authenticated by Dr. Juan Francisco Jackson on 01/19/17 at 14:45. Aida Hinojosa PA-C Jan 19, 2017 08:09 Juan Francisco Jackson MD Jan 19, 2017 14:46
[2017-01-19] MEDS: SODIUM CHLOR 0.9% 1000 ML INJ 1,000 ML IV SCH (08:31)
[2017-01-19 08:41] LABS: BICARBONATE 22.8 MEQ/L (21.0-32.0)
[2017-01-19] MEDS ORDERED: PILL SPLITTER OTHER PRN (08:45)
[2017-01-19 08:47] LABS: POTASSIUM 4.5 MEQ/L (3.5-5.1)
[2017-01-19] MEDS ORDERED: SODIUM CHLORIDE 0.9% FLUSH 5 ML FLUSH IVF SCH (09:00)
[2017-01-19] MEDS: SODIUM CHLORIDE 0.9% FLUSH 5 ML FLUSH FLUSH SCH ×2 (09:09→21:11)
[2017-01-19] MEDS: PANTOPRAZOLE SOD 40 MG DELAYED RELEASE TAB PO SCH (09:09)
[2017-01-19] MEDS: HYDROmorphone HCL 2 MG TAB PO PRN ×3 (09:10→21:16)
[2017-01-19] MEDS ORDERED: ACETAMINOPHEN 325 MG TAB PO PRN (10:00)
[2017-01-19] MEDS ORDERED: ALUMINUM/MAGNESIUM/SIMETH 30 ML CUP PO PRN (10:00)
[2017-01-19] MEDS ORDERED: CALCIUM CARBONATE 500 MG CHEWABLE TAB CHEW PRN (10:00)
[2017-01-19] MEDS: CIPROFLOXACIN 400 MG PREMIX 200 ML IV SCH ×2 (10:51→22:28)
[2017-01-19 11:24] LABS: BASOPHIL % 0.3 % (0.0-2.0); EOSINOPHIL # 0.1 TH/MM3 (0-0.4); EOSINOPHIL % 1.8 % (0.0-4.0); HEMATOCRIT 35.4 % (35.0-46.0); HEMO FLAGS DIFF FINAL; LYMPH % 21.3 % (9.0-44.0); MEAN CELL VOLUME 84.2 FL (80.0-100.0); MEAN CORPUSCULAR HGB CONC 33.3 % (32.0-36.0); MONO % 16.1 % (0.0-8.0); NEUT % 60.5 % (16.0-70.0); PLATELET COUNT 197 TH/MM3 (150-450); RED BLOOD COUNT 4.21 MIL/MM3 (4.00-5.30); RED CELL DISTRIBUTION WIDTH 14.4 % (11.6-17.2); WHITE BLOOD COUNT 4.9 TH/MM3 (4.0-11.0)
[2017-01-19] MEDS: LACTOBACILLUS ACIDOPHILUS TAB PO SCH ×2 (15:08→18:26)
[2017-01-20] VITALS (11 sets, daily range): BP systolic 103–160; BP diastolic 60–81; PULSE 75–95; RESP 18–21; TEMP 97.6–98.8; O2SAT 96–98
[2017-01-20] MEDS: MORPHINE SULFATE 4 MG/ML INJ IV PUSH PRN ×5 (00:17→22:27)
[2017-01-20] MEDS: metroNIDAZOLE 500 MG INJ 100 ML IV SCH ×4 (02:53→20:35)
[2017-01-20] MEDS: SODIUM CHLOR 0.9% 1000 ML INJ 1,000 ML IV SCH (04:19)
[2017-01-20] MEDS: HYDROmorphone HCL 2 MG TAB PO PRN ×4 (05:12→20:35)
[2017-01-20 06:18] LABS: C. DIFF EPI 027 PRESUMPTIVE NEGATIVE (NEGATIVE); C. DIFF TOXIN PCR NEGATIVE (NEGATIVE)
[2017-01-20 08:14] LABS: BICARBONATE 21.9 MEQ/L (21.0-32.0); MAGNESIUM 1.8 MG/DL (1.5-2.5); POTASSIUM 3.6 MEQ/L (3.5-5.1)
[2017-01-20] MEDS: PANTOPRAZOLE SOD 40 MG DELAYED RELEASE TAB PO SCH (08:41)
[2017-01-20] MEDS: LACTOBACILLUS ACIDOPHILUS TAB PO SCH ×3 (08:41→18:00)
[2017-01-20] MEDS: SODIUM CHLORIDE 0.9% FLUSH 5 ML FLUSH FLUSH SCH ×2 (08:41→20:35)
[2017-01-20] MEDS ORDERED: DIPHENOXYLATE/ATROPINE 2.5 MG/0.025 MG TAB PO PRN (09:15)
[2017-01-20] MEDS ORDERED: DIPHENOXYLATE/ATROPINE 2.5 MG/0.025 MG TAB PO ONE (09:15)
[2017-01-20] MEDS: CIPROFLOXACIN 400 MG PREMIX 200 ML IV SCH ×2 (11:15→23:20)
[2017-01-20] MEDS: NS + KCL 20 MEQ INJ 1,000 ML IV SCH (11:15)
--- NOTE | 2017-01-20 11:41 | HHI.PR ---
Subjective Remarks Follow-up for colitis. The patient continues to report significant diarrhea and abdominal cramping yesterday and overnight. She does state that the nausea has improved, but still has poor appetite. Objective Vitals Vital Signs Date Time Temp Pulse Resp B/P Pulse Ox O2 Delivery O2 Flow Rate FiO2 01/20/17 11:24 97.9 79 18 112/79 97 01/20/17 10:23 138/71 01/20/17 09:08 97 21 01/20/17 08:58 97.7 82 20 138/71 96 01/20/17 04:27 98.8 75 21 103/60 98 01/20/17 00:22 10 01/20/17 00:21 98.4 78 18 120/68 98 01/19/17 22:16 12 01/19/17 20:33 98.4 79 18 100/69 97 01/19/17 17:13 82 18 101/60 95 01/19/17 13:17 97.4 83 18 105/58 95 01/19/17 12:31 81 20 112/62 98 Room Air I/O 01/19/17 01/19/17 01/19/17 01/20/17 01/20/17 01/20/17 07:00 15:00 23:00 07:00 15:00 23:00 Intake Total 300 ml 200 ml Balance 300 ml 200 ml Intake Oral 300 ml IV Total 200 ml # Voids 1 # Bowel Movements 1 Result Diagram: 01/19/17 1102 01/20/17 0620 Imaging Last Impressions Abdomen X-Ray 01/18/17 1651 Signed Impressions: Service Date/Time: Wednesday, January 18, 2017 16:58 - CONCLUSION: Within normal limits. No free air or perceptible obstruction.. Joel Wilson MD Abdomen/Pelvis CT 01/18/17 0000 Signed Impressions: Service Date/Time: Wednesday, January 18, 2017 20:21 - CONCLUSION: 1. Diffuse colitis greatest involving the ascending, descending and sigmoid colon. Mild inflammatory changes without perforation or abscess. Bill Gallardo MD Objective Remarks GENERAL: Well-developed well-nourished. In no acute distress. SKIN: Warm and dry. No lesions noted. HEENT: Normocephalic. Pupils equal and round. Mucous membranes pink and moist. CARDIOVASCULAR: Regular rate and rhythm. No murmur appreciated. RESPIRATORY: No accessory muscle use. Clear to auscultation. Breath sounds equal bilaterally. GASTROINTESTINAL: Abdomen soft, nondistended, generalized TTP worse in the epigastrium. Bowel sounds x4. MUSCULOSKELETAL: No obvious deformities. No clubbing or cyanosis. No edema. NEUROLOGICAL: Awake and alert. No focal neurological deficits. Moves upper and lower extremities spontaneously. Normal speech. PSYCHIATRIC: Appropriate mood and affect; insight and judgment normal. A/P Problem List: (1) Colitis ICD Code: K52.9 Status: Acute Assessment and Plan 46-year-old female with no significant past medical history presents with abdominal pain, nausea/vomiting, and diarrhea. Acute Colitis: CT abdomen shows diffuse colitis greatest involving the ascending , descending, and sigmoid colon; mild inflammatory changes, no perforation/ abscess. Stool cultures including C. difficile negative to date. No improvement on on IV Cipro and Flagyl. Consult gastroenterology, may need colonoscopy as inpatient. Clear liquids. Lactinex tid. Protonix. Lomotil. Supportive treatment with IVF, antiemetics, and pain control with po dilaudid and IV morphine prn. DVT Prophylaxis: teds/SCDs Written by Shawn Espinosa, acting as scribe for Dr. Jackson on 01/20/17 at 11:41. All or portions of this note were transcribed by scribe []. I, Dr. Juan Francisco Jackson personally performed the history, physical exam, and medical decision making; and confirmed the accuracy of the information in the transcribed note. Authenticated by Dr. Juan Francisco Jackson on 01/20/17 at 15:13. Discharge Planning Follow-up GI input. Shawn Espinosa Jan 20, 2017 11:41 Juan Francisco Jackson MD Jan 20, 2017 15:13
--- NOTE | 2017-01-20 11:54 | PD.CONS ---
HPI History of Present Illness This is a 46 year old white female with out any significant past medical history who presents to the ED for evaluation of abdomen pain, nausea, vomiting and bloody diarrhea. Symptoms started on Monday and she attributed to having a cold prior to this so she took cold meds, adia seltzer and Imodium but symptoms persists and that prompted the ED visit. States everyone in the house had " cold virus" but they all got better except her. Initially, she started having lower abdomen cramps 9 on the scale from 0-10, but this radiates all the way across the entire abdomen. She reports frequent loose stools with bright red blood, nausea and vomiting but no hematemesis, states "things were coming both ends", wasn't able to keep anything down. Last time she had a BM was this morning and this was black with out bright blood. She reports fever and chills. She denies family history of IBD. Abdomen/Pelvis CT 01/18/17 . Diffuse colitis greatest involving the ascending, descending and sigmoid colon. Mild inflammatory changes without perforation or abscess. Abdomen X-Ray 01/18/17 Within normal limits. No free air or perceptible obstruction. CBC unremarkable. Stools negative for C-diff, stool cx pending. Denies recent abx, or travel. (Joan Young) PFSH Past Medical History hx of hydronephrosis 6 yrs ago - right side Past Surgical History c section x3 tubal ligation (Joan Young) Coded Allergies: Penicillin (Verified Allergy, Severe, SWELLING/HIVES, 01/18/17) Codeine (Verified Adverse Reaction, Mild, Nausea/Vomiting, 01/18/17) Lortab (Verified Adverse Reaction, Mild, Nausea/Vomiting, 01/18/17) Family History Cousin had colon cancer Social History smoking quit 4 days ago - smoked 8 yrs - a pack every 3 days etoh socially, used to drink heavily 15yrs ago (Joan Young) Review of Systems Constitutional: COMPLAINS OF: Fatigue, Fever, Chills Endocrine: DENIES: Polyuria Eyes: DENIES: Double Vision Ears, nose, mouth, throat: DENIES: Hoarseness Respiratory: DENIES: Shortness of breath Cardiovascular: DENIES: Lower Extremity Edema Gastrointestinal: COMPLAINS OF: Abdominal pain, Black stools, Bloody stools, Diarrhea, Nausea, Vomiting, Anorexia, Swelling of Abdomen, DENIES: Constipation , Difficulty Swallowing, Odynophagia, Heartburn, Hematemesis Genitourinary: DENIES: Hematuria Musculoskeletal: DENIES: Back pain Integumentary: DENIES: Jaundice Hematologic/lymphatic: DENIES: Bruising Immunologic/allergic: DENIES: Eczema Neurologic: DENIES: Abnormal gait Psychiatric: DENIES: Anxiety (Hannah,Joan MANAGER PURCHASING) GI Exam Vitals I&O Vital Signs Date Time Temp Pulse Resp B/P Pulse Ox O2 Delivery O2 Flow Rate FiO2 01/20/17 11:24 97.9 79 18 112/79 97 01/20/17 10:23 138/71 01/20/17 09:08 97 21 01/20/17 08:58 97.7 82 20 138/71 96 01/20/17 04:27 98.8 75 21 103/60 98 01/20/17 00:22 10 01/20/17 00:21 98.4 78 18 120/68 98 01/19/17 22:16 12 01/19/17 20:33 98.4 79 18 100/69 97 01/19/17 17:13 82 18 101/60 95 01/19/17 13:17 97.4 83 18 105/58 95 01/19/17 12:31 81 20 112/62 98 Room Air I/O 01/19/17 01/19/17 01/19/17 01/20/17 01/20/17 01/20/17 07:00 15:00 23:00 07:00 15:00 23:00 Intake Total 300 ml 200 ml Balance 300 ml 200 ml Intake Oral 300 ml IV Total 200 ml # Voids 1 # Bowel Movements 1 Imaging Last Impressions Abdomen X-Ray 01/18/17 1651 Signed Impressions: Service Date/Time: Wednesday, January 18, 2017 16:58 - CONCLUSION: Within normal limits. No free air or perceptible obstruction.. Joel Wilson MD Abdomen/Pelvis CT 01/18/17 0000 Signed Impressions: Service Date/Time: Wednesday, January 18, 2017 20:21 - CONCLUSION: 1. Diffuse colitis greatest involving the ascending, descending and sigmoid colon. Mild inflammatory changes without perforation or abscess. Bill Gallardo MD Laboratory Test 01/20/17 06:20 Sodium Level 142 MEQ/L Potassium Level 3.6 MEQ/L Chloride Level 110 MEQ/L Carbon Dioxide Level 21.9 MEQ/L Anion Gap 10 MEQ/L Blood Urea Nitrogen 5 MG/DL Creatinine 0.77 MG/DL Estimat Glomerular Filtration 81 ML/MIN Rate Random Glucose 93 MG/DL Calcium Level 7.9 MG/DL Magnesium Level 1.8 MG/DL Date/Time Procedure Status Source Growth 01/18/17 22:55 Cryptosporidium Exam Received Stool Stool Pending 01/18/17 22:55 Giardia Antigen (DAVID) Received Stool Stool Pending 01/18/17 22:55 Received Stool Stool Pending Physical Examination HEENT: normocephalic; atraumatic; no jaundice. NECK: Neck is supple, no JVD, no lymphadenopathy. CHEST: Chest is clear to auscultation and percussion. CARDIAC: Regular rate and rhythm with no murmur gallop or rubs. ABDOMEN: Soft, nondistended, diffused tenderness ; no hepatosplenomegaly; bowel sounds are present in all four quadrants. EXTREMITIES: No clubbing, cyanosis, or edema. SKIN: Normal; no rash; no jaundice. 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 (Joan Young) Assessment and Plan Plan - Acute pancolitis/ abdomen pain associated with nausea, vomiting, bloody loose diarrhea- Abdomen/Pelvis CT 01/18/17 . Diffuse colitis greatest involving the ascending, descending and sigmoid colon. Mild inflammatory changes without perforation or abscess. Abdomen X-Ray 01/18/17 Within normal limits. No free air or perceptible obstruction. CBC unremarkable. Stools negative for C-diff, stool cx pending. Denies recent abx, or travel. + for sick contact Symptoms started on Monday and she attributed to having a cold prior to this so she took cold meds, adia seltzer and Imodium but symptoms persists and that prompted the ED visit. States everyone in the house had " cold virus" but they all got better except her. Initially, she started having lower abdomen cramps 9 on the scale from 0-10, but this radiates all the way across the entire abdomen. She reports frequent loose stools with bright red blood, nausea and vomiting but no hematemesis, states "things were coming both ends", wasn't able to keep anything down. Last time she had a BM was this morning and this was black with out bright blood. She reports fever and chills. She denies family history of IBD. - Bloody stools- drop in hgb from 14 ----> 11 - Elevated ALT- likely to infection, will monitor, hepatitis panel Plan: - Clear liquids - Cont.Cipro and Flagyl - Await stool cx - CBC, CMP in am - monitor hh - Transfuse as needed - EGD/colonoscopy on Monday - Hepatitis panel - Cont. PPI - Supportive care - Patient seen and examined by Dr. Richter and myself and this note is written on his behalf. (Joan Young) Physician Comments Seen and examined with VIDHYA, stool studies -ve so far. If not better in the next 36 hours on antibiotics, colonoscopy planned . Discussed with pt. Thank you (Ronnie Richter MD) Joan Young Jan 20, 2017 11:53 Ronnie Richter MD Jan 20, 2017 19:53
[2017-01-21] VITALS (9 sets, daily range): BP systolic 102–137; BP diastolic 58–77; PULSE 66–84; RESP 16–22; TEMP 98.1–98.7; O2SAT 93–100
[2017-01-21] MEDS: HYDROmorphone HCL 2 MG TAB PO PRN ×4 (00:04→17:53)
[2017-01-21] MEDS: metroNIDAZOLE 500 MG INJ 100 ML IV SCH ×4 (02:44→21:09)
[2017-01-21] MEDS: MORPHINE SULFATE 4 MG/ML INJ IV PUSH PRN ×6 (02:46→23:52)
[2017-01-21] MEDS: ONDANSETRON HCL 4 MG/2 ML VIAL IVP PRN ×2 (08:06→15:15)
[2017-01-21 08:19] LABS: AUTOMATED NEUTROPHIL # 4.5 TH/MM3 (1.8-7.7); BASOPHIL % 0.4 % (0.0-2.0); EOSINOPHIL # 0.1 TH/MM3 (0-0.4); HEMATOCRIT 35.5 % (35.0-46.0); HEMO FLAGS DIFF FINAL; LYMPH % 18.5 % (9.0-44.0); LYMPHOCYTE # 1.3 TH/MM3 (1.0-4.8); MEAN CELL VOLUME 83.6 FL (80.0-100.0); MEAN CORPUSCULAR HEMOGLOBIN 27.7 PG (27.0-34.0); MEAN CORPUSCULAR HGB CONC 33.2 % (32.0-36.0); MONO % 13.6 % (0.0-8.0); NEUT % 65.5 % (16.0-70.0); PLATELET COUNT 271 TH/MM3 (150-450); RED BLOOD COUNT 4.25 MIL/MM3 (4.00-5.30); RED CELL DISTRIBUTION WIDTH 13.9 % (11.6-17.2); WHITE BLOOD COUNT 6.9 TH/MM3 (4.0-11.0)
[2017-01-21 08:57] LABS: ALKALINE PHOSPHATASE 147 U/L (45-117); ALT (GPT) 55 U/L (10-53); ANION GAP 9 MEQ/L (5-15); AST (GOT) 20 U/L (15-37); BICARBONATE 23.6 MEQ/L (21.0-32.0); BLOOD UREA NITROGEN 3 MG/DL (7-18); CHLORIDE 107 MEQ/L (98-107); GLOMERULAR FILTRATION RATE 76 ML/MIN (>89); MAGNESIUM 1.8 MG/DL (1.5-2.5); POTASSIUM 3.6 MEQ/L (3.5-5.1); SODIUM (NA) 140 MEQ/L (136-145); TOTAL BILIRUBIN ADULT 0.3 MG/DL (0.2-1.0)
[2017-01-21] MEDS: SODIUM CHLORIDE 0.9% FLUSH 5 ML FLUSH FLUSH SCH ×2 (09:00→21:00)
--- NOTE | 2017-01-21 09:18 | HHI.PR ---
Subjective Remarks Follow-up for colitis. The patient reports significant abdominal cramping. She continues to have diarrhea, 3 loose stools yesterday and 2 so far today. Tolerating clear liquids. Objective Vitals Vital Signs Date Time Temp Pulse Resp B/P Pulse Ox O2 Delivery O2 Flow Rate FiO2 01/21/17 08:16 98.1 81 18 125/77 93 01/21/17 04:00 98.7 76 21 137/70 98 01/20/17 22:00 98.1 80 21 138/67 98 01/20/17 20:00 84 01/20/17 20:00 97.6 95 18 160/81 98 01/20/17 18:24 118/64 01/20/17 16:46 76 118/64 01/20/17 14:57 112/79 01/20/17 11:24 97.9 79 18 112/79 97 01/20/17 10:23 138/71 I/O 01/20/17 01/20/17 01/20/17 01/21/17 01/21/17 01/21/17 07:00 15:00 23:00 07:00 15:00 23:00 Intake Total 1100 ml Balance 1100 ml IV Total 1100 ml # Voids 3 1 Result Diagram: 01/21/1717 01/21/1717 Imaging Last Impressions Abdomen X-Ray 01/18/17 1651 Signed Impressions: Service Date/Time: Wednesday, January 18, 2017 16:58 - CONCLUSION: Within normal limits. No free air or perceptible obstruction.. Joel Wilson MD Abdomen/Pelvis CT 01/18/17 0000 Signed Impressions: Service Date/Time: Wednesday, January 18, 2017 20:21 - CONCLUSION: 1. Diffuse colitis greatest involving the ascending, descending and sigmoid colon. Mild inflammatory changes without perforation or abscess. Bill Gallardo MD Objective Remarks GENERAL: Well-developed well-nourished. In no acute distress. SKIN: Warm and dry. No lesions noted. HEENT: Normocephalic. Pupils equal and round. Mucous membranes pink and moist. CARDIOVASCULAR: Regular rate and rhythm. No murmur appreciated. RESPIRATORY: No accessory muscle use. Clear to auscultation. Breath sounds equal bilaterally. GASTROINTESTINAL: Abdomen soft, nondistended, generalized TTP worse in the epigastrium. Bowel sounds x4. MUSCULOSKELETAL: No obvious deformities. No clubbing or cyanosis. No edema. NEUROLOGICAL: Awake and alert. No focal neurological deficits. Moves upper and lower extremities spontaneously. Normal speech. PSYCHIATRIC: Appropriate mood and affect; insight and judgment normal. A/P Problem List: (1) Colitis ICD Code: K52.9 Status: Acute Assessment and Plan 46-year-old female with no significant past medical history presents with abdominal pain, nausea/vomiting, and diarrhea. Acute Colitis: CT abdomen shows diffuse colitis greatest involving the ascending , descending, and sigmoid colon; mild inflammatory changes, no perforation/ abscess. Stool cultures including C. difficile negative to date. No improvement on on IV Cipro and Flagyl. Consult gastroenterology, may need colonoscopy if no improvement on antibiotics. Consider steroids. Clear liquids. Lactinex tid. Protonix. Lomotil and Questran. Bentyl as needed. Continue supportive care. IVF. Antiemetics prn. Pain control with po dilaudid and IV morphine prn. DVT Prophylaxis: teds/SCDs Written by Shanw Espinosa, acting as scribe for Dr. Jackson on 01/21/17 at 09:18. All or portions of this note were transcribed by scribe []. I, Dr. Juan Francisco Jackson personally performed the history, physical exam, and medical decision making; and confirmed the accuracy of the information in the transcribed note. Authenticated by Dr. Juan Francisco Jackson on 01/21/17 at 13:52. Discharge Planning Follow-up GI input. Shawn Espinosa Jan 21, 2017 09:18 Juan Francisco Jackson MD Jan 21, 2017 13:52
[2017-01-21] MEDS: NS + KCL 20 MEQ INJ 1,000 ML IV SCH ×2 (09:59→17:00)
[2017-01-21] MEDS ORDERED: DICYCLOMINE HCL 20 MG TAB PO ONE (10:00)
[2017-01-21] MEDS: LACTOBACILLUS ACIDOPHILUS TAB PO SCH ×3 (10:11→17:52)
[2017-01-21] MEDS: PANTOPRAZOLE SOD 40 MG DELAYED RELEASE TAB PO SCH (10:11)
[2017-01-21] MEDS ORDERED: DICYCLOMINE HCL 20 MG TAB PO PRN (13:00)
[2017-01-21] MEDS: CHOLESTYRAMINE 4 GM PACKET PO SCH ×2 (13:55→21:09)
[2017-01-21] MEDS: CIPROFLOXACIN 400 MG PREMIX 200 ML IV SCH ×2 (13:56→23:02)
--- NOTE | 2017-01-21 16:26 | HHI.GIFU ---
Subjective Remarks Patient is resting in bed still with significant lower abdomen pain, nausea and diarrhea. no bleeding today (Hannah,Joan STRAIGHTENING PRESS OPERATOR HELPER) Objective Vitals I&O Vital Signs Date Time Temp Pulse Resp B/P Pulse Ox O2 Delivery O2 Flow Rate FiO2 01/21/17 16:01 98.4 75 18 112/60 94 01/21/17 13:46 80 01/21/17 12:14 98.3 74 16 123/76 94 01/21/17 08:16 98.1 81 18 125/77 93 01/21/17 04:00 98.7 76 21 137/70 98 01/20/17 22:00 98.1 80 21 138/67 98 01/20/17 20:00 84 01/20/17 20:00 97.6 95 18 160/81 98 01/20/17 18:24 118/64 01/20/17 16:46 76 118/64 I/O 01/20/17 01/20/17 01/20/17 01/21/17 01/21/17 01/21/17 07:00 15:00 23:00 07:00 15:00 23:00 Intake Total 1100 ml Output Total 30 ml Balance 1100 ml -30 ml IV Total 1100 ml Output Stool Total 30 ml # Voids 3 1 # Bowel Movements 1 Laboratory Laboratory Tests Test 01/21/17 07:17 White Blood Count 6.9 Red Blood Count 4.25 Hemoglobin 11.8 Hematocrit 35.5 Mean Corpuscular Volume 83.6 Mean Corpuscular Hemoglobin 27.7 Mean Corpuscular Hemoglobin 33.2 Concent Red Cell Distribution Width 13.9 Platelet Count 271 Mean Platelet Volume 8.3 Neutrophils (%) (Auto) 65.5 Lymphocytes (%) (Auto) 18.5 Monocytes (%) (Auto) 13.6 Eosinophils (%) (Auto) 2.0 Basophils (%) (Auto) 0.4 Neutrophils # (Auto) 4.5 Lymphocytes # (Auto) 1.3 Monocytes # (Auto) 0.9 Eosinophils # (Auto) 0.1 Basophils # (Auto) 0.0 CBC Comment DIFF FINAL Differential Comment Sodium Level 140 Potassium Level 3.6 Chloride Level 107 Carbon Dioxide Level 23.6 Anion Gap 9 Blood Urea Nitrogen 3 Creatinine 0.82 Estimat Glomerular Filtration 76 Rate Random Glucose 91 Calcium Level 8.0 Magnesium Level 1.8 Total Bilirubin 0.3 Aspartate Amino Transf 20 (AST/SGOT) Alanine Aminotransferase 55 (ALT/SGPT) Alkaline Phosphatase 147 Total Protein 6.1 Albumin 2.7 Date/Time Procedure Status Source Growth 01/18/17 22:55 Cryptosporidium Exam - Final Complete Stool Stool NEGATIVE - NO CRYPTOSPORIDIUM ANTIGEN... 01/18/17 22:55 Giardia Antigen (DAVID) - Final Complete Stool Stool NEGATIVE - NO GIARDIA ANTIGEN DETECTE... 01/18/17 22:55 Received Stool Stool Pending Imaging Last Impressions Abdomen X-Ray 01/18/17 1651 Signed Impressions: Service Date/Time: Wednesday, January 18, 2017 16:58 - CONCLUSION: Within normal limits. No free air or perceptible obstruction.. Joel Wilson MD Abdomen/Pelvis CT 01/18/17 0000 Signed Impressions: Service Date/Time: Wednesday, January 18, 2017 20:21 - CONCLUSION: 1. Diffuse colitis greatest involving the ascending, descending and sigmoid colon. Mild inflammatory changes without perforation or abscess. Bill Gallardo MD Physical Exam HEENT: normocephalic; atraumatic; no jaundice. Throat is clear. NECK: Neck is supple, no JVD, no lymphadenopathy. CHEST: Chest is clear to auscultation and percussion. CARDIAC: Regular rate and rhythm with no murmur gallop or rubs. ABDOMEN: Soft, nondistended,Diffused tenderness; no hepatosplenomegaly; bowel sounds are present in all four quadrants. EXTREMITIES: No clubbing, cyanosis, or edema. SKIN: Normal; no rash; no jaundice. HOME CARE LIAISON: No focal deficits; alert and oriented times three. (Amawi,Khawla STRAIGHTENING PRESS OPERATOR HELPER) Assessment and Plan Plan - Acute pancolitis/ abdomen pain associated with nausea, vomiting, bloody loose diarrhea- Abdomen/Pelvis CT 01/18/17 . Diffuse colitis greatest involving the ascending, descending and sigmoid colon. Mild inflammatory changes without perforation or abscess. Abdomen X-Ray 01/18/17 Within normal limits. No free air or perceptible obstruction. CBC unremarkable. Stools negative for C-diff, stool cx pending. Denies recent abx, or travel. + for sick contact Symptoms started on Monday and she attributed to having a cold prior to this so she took cold meds, adia seltzer and Imodium but symptoms persists and that prompted the ED visit. States everyone in the house had " cold virus" but they all got better except her. Initially, she started having lower abdomen cramps 9 on the scale from 0-10, but this radiates all the way across the entire abdomen. She reports frequent loose stools with bright red blood, nausea and vomiting but no hematemesis, states "things were coming both ends", wasn't able to keep anything down. Last time she had a BM was this morning and this was black with out bright blood. She reports fever and chills. She denies family history of IBD. - Bloody stools- no bleeding today, hgb stable - Elevated ALT- trending down,likely due to infection. hepatitis panel pending Plan: - ZEINAB - Cont.Cipro and Flagyl - Await stool cx - hh in am - monitor hh - Transfuse as needed - EGD/colonoscopy on Monday - Obtain consents - Clear liquid tomorrow - NPO Monday mn - Golytely tomorrow - Cont. PPI - Supportive care - Patient seen and examined by Dr. Richter and myself and this note is written on his behalf. (Joan Young) Physician Comments Seen and examined with VIDHYA, colonoscopy planned on monday if stool studies -ve (Ronnie Richter MD) Joan Young Jan 21, 2017 16:26 Ronnie Richter MD Jan 22, 2017 14:54
[2017-01-22] VITALS (9 sets, daily range): BP systolic 103–120; BP diastolic 60–73; PULSE 63–80; RESP 16–20; TEMP 96–98; O2SAT 96–98
[2017-01-22] MEDS: metroNIDAZOLE 500 MG INJ 100 ML IV SCH ×4 (03:33→20:31)
[2017-01-22] MEDS: MORPHINE SULFATE 4 MG/ML INJ IV PUSH PRN ×3 (03:34→20:38)
[2017-01-22] MEDS: NS + KCL 20 MEQ INJ 1,000 ML IV SCH ×3 (03:34→23:00)
[2017-01-22 06:26] LABS: HEMATOCRIT 34.3 % (35.0-46.0); REVIEW FLAG FINAL
[2017-01-22] MEDS: SODIUM CHLORIDE 0.9% FLUSH 5 ML FLUSH FLUSH SCH ×2 (08:54→20:31)
[2017-01-22] MEDS: LACTOBACILLUS ACIDOPHILUS TAB PO SCH ×3 (08:55→17:11)
[2017-01-22] MEDS: PANTOPRAZOLE SOD 40 MG DELAYED RELEASE TAB PO SCH (08:55)
[2017-01-22] MEDS: CHOLESTYRAMINE 4 GM PACKET PO SCH ×2 (08:55→20:31)
[2017-01-22] MEDS ORDERED: POTASSIUM CHLORIDE 20 MEQ CONTROLLED RELEASE TAB PO ONE (09:00)
[2017-01-22] MEDS: HYDROmorphone HCL 2 MG TAB PO PRN ×3 (09:03→19:25)
--- NOTE | 2017-01-22 09:52 | HHI.PR ---
Subjective Remarks Follow up for acute colitis. The patient reports continued loose stools, 4 episodes yesterday and 1 episode this morning. Denies nausea/vomiting. Tolerating oral intake. Has continued constant dull epigastric abdominal pain. Plan for EGD/colonoscopy tomorrow. Objective Vitals Vital Signs Date Time Temp Pulse Resp B/P Pulse Ox O2 Delivery O2 Flow Rate FiO2 01/22/17 08:00 97.9 67 16 113/64 96 01/22/17 04:32 96.2 75 20 107/67 97 01/22/17 00:09 97.2 72 20 113/73 97 01/21/17 23:30 69 01/21/17 20:02 96 21 01/21/17 20:00 66 01/21/17 19:36 98.7 84 22 102/58 100 01/21/17 16:01 98.4 75 18 112/60 94 01/21/17 13:46 80 01/21/17 12:14 98.3 74 16 123/76 94 I/O 01/21/17 01/21/17 01/21/17 01/22/17 01/22/17 01/22/17 07:00 15:00 23:00 07:00 15:00 23:00 Intake Total 120 ml Output Total 30 ml Balance -30 ml 120 ml Intake Oral 120 ml Output Stool Total 30 ml # Voids 1 3 # Bowel Movements 1 1 Result Diagram: 01/22/17 0539 01/21/17 0717 Imaging Last Impressions Abdomen X-Ray 01/18/17 1651 Signed Impressions: Service Date/Time: Wednesday, January 18, 2017 16:58 - CONCLUSION: Within normal limits. No free air or perceptible obstruction.. Joel Wilson MD Abdomen/Pelvis CT 01/18/17 0000 Signed Impressions: Service Date/Time: Wednesday, January 18, 2017 20:21 - CONCLUSION: 1. Diffuse colitis greatest involving the ascending, descending and sigmoid colon. Mild inflammatory changes without perforation or abscess. Bill Gallardo MD Objective Remarks GENERAL: Well-nourished, well-developed middle aged female patient in [facility]. SKIN: Warm and dry. No rash. HEENT: Normocephalic. Atraumatic.Pupils equal and round. No scleral icterus. No injection or drainage. Mucous membranes pink and moist. NECK: Supple. Trachea midline. CARDIOVASCULAR: Regular rate and rhythm. S1, S2 noted. No murmur appreciated. RESPIRATORY: No accessory muscle use. Clear to auscultation. Breath sounds equal bilaterally. GASTROINTESTINAL: Abdomen soft, nondistended, moderate epigastric TTP. Normoactive bowel sounds x4. MUSCULOSKELETAL: No obvious deformities. Extremities without clubbing, cyanosis , or edema. NEUROLOGICAL: Awake and alert. No obvious cranial nerve deficits. Motor grossly within normal limits. Normal speech. PSYCHIATRIC: Appropriate mood and affect; insight and judgment normal. Medications and IVs Current Medications Medications (Trade) Dose Ordered Sig/Sukhwinder Route Start Time Stop Time Status Last Admin (NS Flush) 2 ml UNSCH PRN FLUSH 01/18/17 22:30 (NS Flush) 2 ml BID FLUSH 01/19/17 09:00 01/22/17 08:54 (Zofran Inj) 4 mg Q6H PRN IVP 01/18/17 22:30 01/21/17 15:15 Naloxone HCl 0.4 mg 0.4 mg UNSCH PRN IV 01/18/17 22:30 Ciprofloxacin/ Dextrose 200 ml @ 200 mls/hr Q12H IV 01/18/17 23:00 01/21/17 23:02 (Flagyl 500 Mg Inj) 100 ml @ 100 mls/hr Q6H IV 01/19/17 03:00 01/22/17 08:55 (Morphine Inj) 2 mg Q3H PRN IV PUSH 01/18/17 22:30 01/22/17 03:34 (Dilaudid) 1 mg Q4H PRN PO 01/19/17 08:15 01/22/17 09:03 (Protonix) 40 mg DAILY PO 01/19/17 09:00 01/22/17 08:55 (Pill Splitter) 1 ea UNSCH PRN OTHER 01/19/17 08:45 01/21/17 14:07 (Lactinex) 1 tab TID PO 01/19/17 13:00 01/22/17 08:55 (Tylenol) 650 mg Q4H PRN PO 01/19/17 10:00 (Mag-Al Plus Susp Liq) 30 ml Q6H PRN PO 01/19/17 10:00 (Tums Chew) 1,000 mg TID PRN CHEW 01/19/17 10:00 Diphenoxylate HCl/ Atropine 1 tab 1 tab Q6H PRN PO 01/20/17 09:15 (NS + KCl 20 Meq Inj) 1,000 ml @ 100 mls/hr Q10H IV 01/20/17 11:00 01/22/17 09:01 (Questran 4 Gm Pkt) 4 gm Q12HR PO 01/21/17 10:00 01/22/17 08:55 (Bentyl) 20 mg TID PRN PO 01/21/17 13:00 01/21/17 15:02 (Colyte Liq) 4,000 ml ONCE ONCE PO 01/22/17 16:00 01/22/17 16:01 Urinary Catheter: No Vascular Central Line Catheter: No A/P Problem List: (1) Colitis ICD Code: K52.9 Status: Acute Assessment and Plan 46-year-old female with no significant past medical history presents with abdominal pain, nausea/vomiting, and diarrhea. Acute Colitis: CT abdomen shows diffuse colitis greatest involving the ascending , descending, and sigmoid colon; mild inflammatory changes, no perforation/ abscess. Stool cultures and C. difficile negative to date. Minimal improvement on IV Cipro and Flagyl. Clear liquids. Lactinex tid. Protonix. Lomotil and Questran. Bentyl as needed. Continue supportive care. IVF. Antiemetics prn. Pain control with po dilaudid and IV morphine prn. Consult gastroenterology, plan for EGD/colonoscopy tomorrow 01/23. Consider steroids if no improvement. Mild anemia secondary to above and the lesion. No gross bleeding. We'll monitor DVT Prophylaxis: teds/SCDs Discussed with RN. Written by Aida Hinojosa, acting as scribe for Dr. Jackson on 01/22/17 at 09: 20. All or portions of this note were transcribed by scribe []. I, Dr. Juan Francisco Jackson personally performed the history, physical exam, and medical decision making; and confirmed the accuracy of the information in the transcribed note. Authenticated by Dr. Juan Francisco Jackson on 01/22/17 at 16:01. Aida Hinojosa PA-C Jan 22, 2017 09:52 Juan Francisco Jackson MD Jan 22, 2017 16:01
[2017-01-22] MEDS: CIPROFLOXACIN 400 MG PREMIX 200 ML IV SCH (10:44)
[2017-01-22] MEDS: ONDANSETRON HCL 4 MG/2 ML VIAL IVP PRN (10:52)
--- NOTE | 2017-01-22 15:34 | HHI.GIFU ---
GI Follow-up Note Consult Follow-up Subjective: Patient laying in bed comfortably, no new complaints except diarrhea, abdominal pain Objective: PHYSICAL EXAMINATION: Vitals signs stable No fever HEENT: Pupils round and reactive to light; normocephalic; atraumatic; no jaundice. Throat is clear. NECK: Neck is supple, no JVD, no lymphadenopathy. CHEST: Chest is clear to auscultation and percussion. CARDIAC: Regular rate and rhythm with no murmur gallop or rubs. ABDOMEN: Soft, nondistended, nontender; no hepatosplenomegaly; bowel sounds are present in all four quadrants. EXTREMITIES: No clubbing, cyanosis, or edema. SKIN: Normal; no rash; no jaundice. WATER TREATMENT PLANT OPERATOR: No focal deficits; alert and oriented times three. Available Data (labs, X- Rays, Procedues) : Last Impressions Abdomen X-Ray 01/18/17 1651 Signed Impressions: Service Date/Time: Wednesday, January 18, 2017 16:58 - CONCLUSION: Within normal limits. No free air or perceptible obstruction.. Joel Wilson MD Abdomen/Pelvis CT 01/18/17 0000 Signed Impressions: Service Date/Time: Wednesday, January 18, 2017 20:21 - CONCLUSION: 1. Diffuse colitis greatest involving the ascending, descending and sigmoid colon. Mild inflammatory changes without perforation or abscess. Bill Gallardo MD Laboratory Tests Test 01/21/17 01/22/17 07:17 05:39 White Blood Count 6.9 TH/MM3 Red Blood Count 4.25 MIL/MM3 Hemoglobin 11.8 GM/DL 11.4 GM/DL Hematocrit 35.5 % 34.3 % Mean Corpuscular Volume 83.6 FL Mean Corpuscular Hemoglobin 27.7 PG Mean Corpuscular Hemoglobin 33.2 % Concent Red Cell Distribution Width 13.9 % Platelet Count 271 TH/MM3 Mean Platelet Volume 8.3 FL Neutrophils (%) (Auto) 65.5 % Lymphocytes (%) (Auto) 18.5 % Monocytes (%) (Auto) 13.6 % Eosinophils (%) (Auto) 2.0 % Basophils (%) (Auto) 0.4 % Neutrophils # (Auto) 4.5 TH/MM3 Lymphocytes # (Auto) 1.3 TH/MM3 Monocytes # (Auto) 0.9 TH/MM3 Eosinophils # (Auto) 0.1 TH/MM3 Basophils # (Auto) 0.0 TH/MM3 CBC Comment DIFF FINAL Differential Comment Sodium Level 140 MEQ/L Potassium Level 3.6 MEQ/L Chloride Level 107 MEQ/L Carbon Dioxide Level 23.6 MEQ/L Anion Gap 9 MEQ/L Blood Urea Nitrogen 3 MG/DL Creatinine 0.82 MG/DL Estimat Glomerular Filtration 76 ML/MIN Rate Random Glucose 91 MG/DL Calcium Level 8.0 MG/DL Magnesium Level 1.8 MG/DL Total Bilirubin 0.3 MG/DL Aspartate Amino Transf 20 U/L (AST/SGOT) Alanine Aminotransferase 55 U/L (ALT/SGPT) Alkaline Phosphatase 147 U/L Total Protein 6.1 GM/DL Albumin 2.7 GM/DL Allergies Coded Allergies Type Severity Reaction Last Updated Verified Penicillin Allergy Severe SWELLING/HIVES 01/18/17 Yes Codeine Adverse Reaction Mild Nausea/Vomiting 01/18/17 Yes Lortab Adverse Reaction Mild Nausea/Vomiting 01/18/17 Yes Active Scripts Medications Dose Route/Sig Days Date Category Ibuprofen 800 Mg Tab 800 Mg PO Q8H PRN 01/07/17 Rx ASSESSMENT/PLAN: Stool s +ve for salmonella species. Hold colonoscopy. Continue ciprofloxin for 05 to 07 days. Gi will sign off, Gi fu as outpt. Please. Thank you It was a pleasure seeing Loyda Linares. Thank you for this consult. Entered by: Ronnie Wooten MD Jan 22, 2017 15:34
[2017-01-22] MEDS ORDERED: PEG (High)/E-LYTE SOLN 4000 ML BTL PO ONE (16:00)
[2017-01-22] MEDS: CIPROFLOXACIN 500 MG TAB PO SCH (20:31)
[2017-01-23] VITALS: BP 109/59; PULSE 74; RESP 17; TEMP 98.2; O2SAT 97
[2017-01-23] MEDS: metroNIDAZOLE 500 MG INJ 100 ML IV SCH ×2 (03:11→08:51)
[2017-01-23 04:00] VITALS: BP 112/70; PULSE 71; RESP 16; TEMP 97.6; O2SAT 98
[2017-01-23 08:00] VITALS: BP 114/84; PULSE 64; RESP 16; TEMP 96.1; O2SAT 98
[2017-01-23] MEDS: SODIUM CHLORIDE 0.9% FLUSH 5 ML FLUSH FLUSH SCH (08:50)
[2017-01-23] MEDS: PANTOPRAZOLE SOD 40 MG DELAYED RELEASE TAB PO SCH (08:51)
[2017-01-23] MEDS: CHOLESTYRAMINE 4 GM PACKET PO SCH (08:51)
[2017-01-23] MEDS: CIPROFLOXACIN 500 MG TAB PO SCH (08:51)
[2017-01-23] MEDS: LACTOBACILLUS ACIDOPHILUS TAB PO SCH ×2 (08:51→13:00)
[2017-01-23] MEDS: NS + KCL 20 MEQ INJ 1,000 ML IV SCH (08:52)
[2017-01-23 12:00] VITALS: BP 123/78; PULSE 66; TEMP 97.6; O2SAT 98
[2017-01-23] MEDS ORDERED: CIPR-9 PO (12:53)
[2017-01-23] MEDS ORDERED: LACT PO (12:53)
--- NOTE | 2017-01-23 12:53 | HHI.DCPOC ---
Discharge Care Plan Diagnosis: (1) Colitis Your Health Problems Are: Difficulty with ADL Exercise Tolerance Goals to Promote Your Health * To prevent worsening of your condition and complications * To maintain your health at the optimal level Directions to Meet Your Goals Take your medications as prescribed Follow your dietary instruction Follow activity as directed Keep your appointments as scheduled Take your immunizations and boosters as scheduled If your symptoms worsen call your PCP, if no PCP go to Urgent Care Center or Emergency Room Smoking is Dangerous to Your Health. Avoid second hand smoke Call the 24-hour hour crisis hotline for domestic abuse at Juan Francisco Jackson MD Jan 23, 2017 12:53
--- NOTE | 2017-01-23 12:54 | HHI.DS ---
Discharge Summary Admission Date Jan 18, 2017 at 22:05 Discharge Date: Jan 23, 2017 Admitting Diagnosis colitis (1) Colitis ICD Code: K52.9 Diagnosis: Principal (2) Salmonella enteritis ICD Code: A02.0 Diagnosis: Principal Procedures None. Brief History - From Admission History from patient, ER physician, irrigation, and review of medical records. Patient reported that since Monday she has been having diffuse abdominal pain. She also reports of subjective fever and chills that she did not measure her temperature. She stated that she was also having nausea and vomiting. No coffee color or bright red blood in her vomit. Next and she states that the vomiting has actually stopped since she arrived to ER and received Zofran. She was also having diarrhea. She states the diarrhea however has not stopped at all. She is still having it even when she drinks a sip of water. She also reports of some blood bright red color in her diarrhea. she stated she took a few doses of Imodium at home. She denies any sick contacts. In the emergency room, patient was given IV fluids. She had multiple episodes of running to the bathroom for diarrhea. She simply was not able to ambulate well and was extremely weak because of these bouts of diarrhea. Apart from the above, patient denies any chest pain/palpitations/shortness of breath/focal weakness. She denies any syncopal episodes or falls. Denies any urinary burning or pain on urination. CBC/BMP: 01/22/17 0539 01/21/17 0717 Significant Findings Laboratory Tests Test 01/21/17 01/22/17 07:17 05:39 Monocytes (%) (Auto) 13.6 % (0.0-8.0) Blood Urea Nitrogen 3 MG/DL (7-18) Estimat Glomerular Filtration 76 ML/MIN (>89) Rate Calcium Level 8.0 MG/DL (8.5-10.1) Alanine Aminotransferase 55 U/L (10-53) (ALT/SGPT) Alkaline Phosphatase 147 U/L (45-117) Total Protein 6.1 GM/DL (6.4-8.2) Albumin 2.7 GM/DL (3.4-5.0) Hemoglobin 11.4 GM/DL (11.6-15.3) Hematocrit 34.3 % (35.0-46.0) Imaging Last Impressions Abdomen X-Ray 01/18/17 1651 Signed Impressions: Service Date/Time: Wednesday, January 18, 2017 16:58 - CONCLUSION: Within normal limits. No free air or perceptible obstruction.. Joel Wilson MD Abdomen/Pelvis CT 01/18/17 0000 Signed Impressions: Service Date/Time: Wednesday, January 18, 2017 20:21 - CONCLUSION: 1. Diffuse colitis greatest involving the ascending, descending and sigmoid colon. Mild inflammatory changes without perforation or abscess. Bill Gallardo MD PE at Discharge GENERAL: Well-developed well-nourished. In no acute distress. SKIN: Warm and dry. No lesions noted. HEENT: Normocephalic. Pupils equal and round. Mucous membranes pink and moist. CARDIOVASCULAR: Regular rate and rhythm. No murmur appreciated. RESPIRATORY: No accessory muscle use. Clear to auscultation. Breath sounds equal bilaterally. GASTROINTESTINAL: Abdomen soft, nondistended, generalized TTP worse in the epigastrium. Bowel sounds x4. MUSCULOSKELETAL: No obvious deformities. No clubbing or cyanosis. No edema. NEUROLOGICAL: Awake and alert. No focal neurological deficits. Moves upper and lower extremities spontaneously. Normal speech. PSYCHIATRIC: Appropriate mood and affect; insight and judgment normal. Pt update on day of discharge The patient reports feeling much better today. Only 1 episode of loose stool this morning. No fevers/chills. Has minimal epigastric pain, much improved compared to previous days. She is tolerating oral intake. She wants to go home. Refusing any further IV medication or labs. Hospital Course 46-year-old female with no significant past medical history presents with abdominal pain, nausea/vomiting, and diarrhea. Acute Colitis secondary to Salmonella: CT abdomen showed diffuse colitis greatest involving the ascending, descending, and sigmoid colon; mild inflammatory changes, no perforation/abscess. Given IV Cipro and Flagyl. C. difficile negative, however after 3 days of hospitalization, stool cultures resulted with +Salmonella. Clear liquids. Given Lactinex tid, Protonix, Questran. Bentyl as needed. Continue supportive care with IVF, Antiemetics prn , Pain control. Consult gastroenterology, initially planned for EGD/colonoscopy however then stool studies resulted positive for Salmonella. Changed abx to po Cipro to complete 7days of treatment. Patient much improved, only 1 episode of loose stool on day of discharge. Patient tolerating oral intake. Will discharge home. Mild anemia secondary to above and hemodilution with IVF. No gross bleeding. We'll monitor. DVT Prophylaxis: teds/SCDs Discussed with RN. Written by Aida Hinojosa, acting as scribe for Dr. Jackson on 01/23/17 at 12: 50. All or portions of this note were transcribed by scribe []. I, Dr. Juan Francisco Jackson personally performed the history, physical exam, and medical decision making; and confirmed the accuracy of the information in the transcribed note. Authenticated by Dr. Juan Francisco Jackson on 01/23/17 at 16:27. Pt Condition on Discharge: Good Discharge Disposition: Discharge Home Discharge Time: <= 30 minutes Discharge Instructions DIET: Follow Instructions for: As Tolerated, No Restrictions Follow up Referrals: PCP Follow-up - 1 Week New Medications: Ciprofloxacin (Cipro) 500 Mg Tab 500 MG PO Q12HR Infection #6 TAB Lactobacillus Acidophilus (Acidophilus/l-Sporogenes) 1 Tab Tab 1 TAB PO TID Bowel Management #30 TAB Aida Hinojosa PA-C Jan 23, 2017 12:54 Juan Francisco Jackson MD Jan 23, 2017 16:27
== END 2017-01-23 14:41 | disposition home or self-care (01) ==
LOC: NEPC 15:37 → NEDA 22:05 → NEDH 01-19 02:05 → NEPHCDU 01-19 12:45 → HOCB 01-21 23:30
PROVIDERS: ADMIT Internal Medicine; ATTEND Internal Medicine
DX: A02.0 Salmonella enteritis (principal); R74.0 Nonspecific elevation of levels of transaminase and lactic acid dehydrogenase [LDH]; R11.2 Nausea with vomiting, unspecified; D64.9 Anemia, unspecified; Z87.891 Personal history of nicotine dependence
CPT/HCPCS: 74000; 74177; 76937; 80048; 80053; 80074; 81001; 83690; 83735; 84703; 85014; 85018; 85025; 85610; 85730; 87328; 87493; 87506; 96361; 96365; 96375; 96376; 99285; G0378; J0744; J2270; J2405; J3480; J7030; Q9967; 87329